=== PATIENT | female | born 1990 | race Caucasian/White ===

== ENCOUNTER 2021-08-23 09:24 | Outpatient (REF) | payer OTHER, SELFPAY | END 2021-08-23 09:25 | disposition home or self-care (01) | LOC: HO.LAB 09:24 | PROVIDERS: Visit Provider Internal Medicine | DX: Z13.89 Encounter for screening for other disorder (principal) | CPT/HCPCS: 36415; 87635; C9803 ==

== ENCOUNTER 2023-06-08 16:57 | Emergency (ER) | payer OTHER, SELFPAY ==
--- NOTE | ~2023-06-08 | XR_ITS ---
EXAMINATION: XR ANKLE, LEFT CLINICAL INFORMATION: Pain, injury. COMPARISON: Radiograph left ankle 07/11/2014. TECHNIQUE: AP, lateral, and mortise views of the left ankle. FINDINGS: Very subtle ossific/calcific densities along the medial clear space of the ankle mortise. Joint alignment is anatomic. Soft tissue swelling, more prominent adjacent to the medial malleolus. Minimal dorsal calcaneal spurring. XR/XR ankle LT min 3V IMPRESSION: 1. Very subtle ossific/calcific densities along the medial clear space of the ankle mortise which could be related with a ligamentous injury. Correlate with point tenderness. 2. Soft tissue swelling, more prominent adjacent to the medial malleolus.
--- NOTE | 2023-06-08 17:28 | ED_ITS ---
HPI - General Adult General Chief complaint: Extremity Injury, Lower Stated complaint: L ankle sprain Time Seen by Provider: 06/08/23 17:28 Source: patient Mode of arrival: ambulatory Limitations: no limitations History of Present Illness HPI narrative: Patient is a 33 year old assigned female at with no reported medical history presenting to the emergency department today with left ankle pain. Patient states that she tripped and twisted her left ankle. Patient denies any dizziness, lightheadedness, abdominal pain, nausea, vomiting, fever, chills, blurry vision, double vision, loss of vision, chest pain, difficulty breathing, shortness of breath, back pain, night sweats, pain with urination, increased urinary frequency, increased urinary urgency, blood in her urine or stool, syncope or a near syncopal episode, bowel incontinence, bladder incontinence, bowel retention, bladder retention, or any other complaints at this time. Location: left and lower extremity Radiation: non-radiation Severity: mild Severity scale (1-10): 3 Quality: aching Pain Consistency: constant Relieving factors: none Exacerbating factors: none Associated symptoms: denies other symptoms Treatments prior to arrival: none Related Data Allergies Allergy/AdvReac Type Severity Reaction Status Date / Time No Known Allergies Allergy Verified 06/08/23 17:29 Review of Systems Constitutional: Constitutional: Reports no additional constitutional complaints, Denies chills, Denies fever(s) and Denies night sweats Eyes: Eyes: Reports no additional eye complaints, Denies blurry vision, Denies change in vision, Denies diplopia, Denies eye discharge, Denies loss of vision and Denies eye pain ENT: Denies dizziness Cardiovascular: Cardiovascular: Reports no additional cardiovascular complaints, Denies chest pain, Denies lightheadedness, Denies Loss of Consciousness and Denies dyspnea Respiratory: Respiratory: Reports no additional respiratory complaints and Denies dyspnea Gastrointestinal: Gastrointestinal: Reports no additional gastrointestinal complaints, Denies abdominal pain, Denies melena, Denies hematochezia, Denies change in bowel habits and Denies change in stool character Genitourinary: Genitourinary: Denies hematuria, Denies urinary frequency, Denies dysuria, Denies urinary incontinence, Denies urinary hesitancy and Denies urinary urgency Musculoskeletal: Musculoskeletal: Reports no additional musculoskeletal complaints, Denies numbness and Denies tingling Comments: left ankle pain Neurologic: Denies dizziness, Denies loss of vision, Denies numbness and Denies tingling Psychiatric: Psychiatric: Reports no additional psychiatric complaints Endocrine: Endocrine: Reports no additional endocrine complaints Hematologic/Lymphatic: Hematologic/Lymphatic: Reports no additional hematologic/lymphatic complaints Allergic/Immunologic: Allergic/Immunologic: Reports no additional allergic/immunologic complaints [facility] Past Medical History Attestation statement: The following information was validated with the patient. Source: old records reviewed and nursing notes reviewed Social History Social History Advance Directives: No Advance Directives Information Provided: No Physical Exam ED Vital Signs: Vital Signs - 24 hr 06/08/23 17:30 Pulse Rate 77 Respiratory Rate 16 Blood Pressure 118/62 Pulse Oximetry 99 Oxygen Delivery Method Room Air BMI result Body Mass Index 32.1 Const General: cooperative, no acute distress, alert and awake Nutritional Appearance: well nourished Orientation/consciousness: patient oriented x3 Limitations: no limitations HENMT Head: Yes normal to inspection and Yes atraumatic Ears: hearing grossly normal bilaterally and external ears normal General nose exam: Normal external nose present, no nasal discharge noted and no epistaxis Face and sinus: Yes normal facial exam, No abrasion and No laceration Mouth: Normal oral and palatal mucosa present, no drooling and no muffled voice Eyes General: appearance normal, both eyes and all related structures Periorbital: periorbital findings normal Eyelids: Yes eyelids normal Conjunctivae: conjunctivae normal Pupils: Equal, round and reactive pupils present EOM: EOMs intact bilaterally Neck Neck: Yes normal visual inspection, Yes full ROM and Yes no lymphadenopathy Chest Chest palpation & inspection: normal inspection of the chest Resp Effort & Inspection: normal respiratory effort and able to speak in complete sentences GI Inspection: Yes normal to inspection Neuro General: patient oriented x3 and moves all extremities Cranial nerves: Yes Equal, round and reactive pupils present Cognition (Neuro): normal cognition Motor exam (neuro): 5/5 motor strength present throughout Sensory Exam: Normal double simultaneous stimulation for sensation Coordination: [id number] test normal Extrem Other: minimal swelling present to the left ankle General: Yes full ROM and Yes capillary refill normal Psych Appearance: grossly normal Mental Status: mental status grossly normal Affect: normal affect Attitude: cooperative Thought process: Normal thought process present Thought content: Normal thought content present Insight: Good insight present (Psych) Procedures Orthopedic Splinting/Casting Injury #1: Side: left Lower Extremity Injury Location: ankle Lower Extremity Immobilizer: Moises wrap Medical Decision Making Medical Decision Making MDM Narrative: Patient is a 33 year old assigned female at with no reported medical history presenting to the emergency department today with left ankle pain. Patient's physical exam was as noted in the physical exam portion of this note. Patient's left ankle x-ray showed no acute dimple process but possible ligament injury. I explained my physical exam findings as well as all test results to the patient. I answered all questions asked by the patient. Patient's left ankle was wrapped in an MOISES wrap without incident. Patient's PMS was intact prior to and after MOISES wrap was applied. I stressed the importance of the patient taking her medication as prescribed. I stressed the importance of the patient following up with her primary care provider and an orthopedic provider. I stressed the importance of the patient returning to the emergency department immediately if her symptoms were to worsen or if she were to develop any dizziness, shortness of breath, difficulty breathing, chest pain, blurry vision, loss of vision, nausea, vomiting, abdominal pain, fever, chills, back pain, or any other complaints. Patient verbalized agreement and understanding with this treatment plan and discharge. Differential Diagnosis Differential Diagnoses: The differential diagnosis associated with the presentation includes Ankle sprain Ankle strain Ankle fracture Independent Interpretation I performed an independent interpretation of an: Plain X-Ray Interpretation: My interpretation is in agreement with the radiologist's impression of this [facility] ging study. EXAMINATION: XR ANKLE, LEFT CLINICAL INFORMATION: Pain, injury. COMPARISON: Radiograph left ankle 07/11/2014. TECHNIQUE: AP, lateral, and mortise views of the left ankle. FINDINGS: Very subtle ossific/calcific densities along the medial clear space of the ankle mortise. Joint alignment is anatomic. Soft tissue swelling, more prominent adjacent to the medial malleolus. Minimal dorsal calcaneal spurring. XR/XR ankle LT min 3V IMPRESSION: 1. Very subtle ossific/calcific densities along the medial clear space of the ankle mortise which could be related with a ligamentous injury. Correlate with point tenderness. 2. Soft tissue swelling, more prominent adjacent to the medial malleolus. Dictated By: Julee Ariza Signed By: Electronically signed by Julee Ariza 06/08/23 1185 Radiology Impression Discussion of test interpretation with radiology: I have reviewed the radiologist's reading. Discharge Plan Discharge Clinical Impression: Ankle sprain and strain Patient Disposition: Home, Self-Care Instructions: Ankle Sprain (ED) Additional Instructions: Follow up with your primary care provider and an orthopedic provider. Return to the emergency department immediately if your symptoms worsen or if you develop any dizziness, shortness of breath, difficulty breathing, chest pain, blurry vision, loss of vision, nausea, vomiting, abdominal pain, fever, chills, back pain, or any other complaints. Referrals: [facility] [place] [facility] [Provider Group] (Call to establish and follow up with a primary care provider. If you already have a primary care provider, please follow up with them.) [facility] [place] Primary Care, Yajaira [Provider Group] (Call to establish and follow up with a primary care provider. If you already have a primary care provider, please follow up with them.) [facility] [place] Primary Care,Javier [Provider Group] (Call to establish and follow up with a primary care provider. If you already have a primary care provider, please follow up with them.) [facility] [place]Provider Group] (Call to establish and follow up with an orthopedic provider.) Interventions: ED Discharge Assessment Last Done: 06/08/23 18:30 Discharge Date/Time: 06/08/23 18:36 Print Language: [place]an
[2023-06-08 17:30] VITALS: BP 118/62; PULSE 77; RESP 16; O2SAT 99; BMI 32.1
== END 2023-06-08 18:36 | disposition home or self-care (01) ==
PROVIDERS: Emergency Provider Emergency Medicine
DX: S93.402A Sprain of unspecified ligament of left ankle, initial encounter (principal); S96.912A Strain of unspecified muscle and tendon at ankle and foot level, left foot, initial encounter; W18.42XA Slipping, tripping and stumbling without falling due to stepping into hole or opening, initial encounter; Y93.89 Activity, other specified; Y92.007 Garden or yard of unspecified non-institutional (private) residence as the place of occurrence of the external cause; Y99.9 Unspecified external cause status
CPT/HCPCS: 73610; 99282; 99283